=== PATIENT | male | born 1990 | race Caucasian/White ===

== ENCOUNTER 2019-02-20 12:54 | Emergency (ER) | payer BC ==
--- NOTE | 2019-02-20 14:44 | RAD REPORT ---
EXAM DESCRIPTION: RAD - Elbow Right 3 View - 02/20/2019 2:38 pm CLINICAL HISTORY: pain COMPARISON: No comparisons FINDINGS: Mild soft tissue swelling is seen about the elbow. No acute fracture, dislocation or radio paque foreign body evident.
--- NOTE | 2019-02-20 20:19 | EDPHYS ---
Physician Documentation [facility] Name: Isaac Mcknight Age: 28 yrs Sex: Male : 1990 Arrival Date: 02/20/2019 Time: 12:58 Bed 30 Private MD: ED Physician Johnson Valdez HPI: 02/20 15:07 This 28 yrs old presents to ER via Ambulatory with complaints of Elbow Injury. pm1 15:07 The patient or guardian complains of pain, swelling. The complaints affect the right pm1 elbow. Context: The problem was sustained outdoors, resulted from Fall on ground while pushing his car and landed on his right elbow. Onset: The symptoms/episode began/occurred 4 day(s) ago. Treatment prior to arrival includes: no previous treatment. Modifying factors: The symptoms are alleviated by remaining still, the symptoms are aggravated by movement. Associated signs and symptoms: Pertinent negatives: decreased range of motion, deformity, erythema, fever, numbness, tingling, weakness. Severity of symptoms: in the emergency department the symptoms are unchanged. The patient has not experienced similar symptoms in the past. Historical: - Allergies: 13:06 No Known Allergies; aj1 - Home Meds: 13:06 None [Active]; aj1 - PMHx: 13:06 None; aj1 - PSHx: 13:06 None; aj1 - Immunization history:: Flu vaccine is not up to date. - Social history:: Smoking status: Patient uses tobacco products, smokes one-half pack cigarettes per day. - Ebola Screening: : Patient denies travel to an Ebola-affected area in the 21 days before illness onset. ROS: 15:07 Constitutional: Negative for fever, chills, and weight loss, Neck: Negative for injury, pm1 pain, and swelling, Cardiovascular: Negative for chest pain, palpitations, and edema, Respiratory: Negative for shortness of breath, cough, wheezing, and pleuritic chest pain, Abdomen/GI: Negative for abdominal pain, nausea, vomiting, diarrhea, and constipation, Back: Negative for injury and pain. 15:07 Skin: Negative for injury, rash, and discoloration, Neuro: Negative for headache, weakness, numbness, tingling, and seizure. 15:07 MS/extremity: Positive for pain, swelling, of the right elbow, Negative for decreased range of motion, deformity. Exam: 15:07 Constitutional: This is a well developed, well nourished patient who is awake, alert, pm1 and in no acute distress. Head/Face: Normocephalic, atraumatic. Neck: Trachea midline, no thyromegaly or masses palpated, and no cervical lymphadenopathy. Supple, full range of motion without nuchal rigidity, or vertebral point tenderness. No Meningismus. Chest/axilla: Normal chest wall appearance and motion. Nontender with no deformity. No lesions are appreciated. Cardiovascular: Regular rate and rhythm with a normal S1 and S2. No gallops, murmurs, or rubs. Normal PMI, no JVD. No pulse deficits. Respiratory: Lungs have equal breath sounds bilaterally, clear to auscultation and percussion. No rales, rhonchi or wheezes noted. No increased work of breathing, no retractions or nasal flaring. Back: No spinal tenderness. No costovertebral tenderness. Full range of motion. Skin: Warm, dry with normal turgor. Normal color with no rashes, no lesions, and no evidence of cellulitis. 15:07 Musculoskeletal/extremity: Extremities: grossly normal except: noted in the right elbow: swelling, tenderness, There is no evidence of decreased ROM, deformity. Vital Signs: 13:06 BP 129 / 82; Pulse 73; Resp 18; Temp 98.4; Pulse Ox 100% on R/A; Weight 74.84 kg (R); aj1 Height 6 ft. 0 in. (182.88 cm) (R); Pain 3/10; 14:00 BP 128 / 78; Pulse 70; Resp 16; Pulse Ox 100% on R/A; tr5 13:06 Body Mass Index 22.38 (74.84 kg, 182.88 cm) aj1 MDM: 14:10 Patient medically screened. pm1 15:07 Data reviewed: vital signs. Data interpreted: Pulse oximetry: on room air is 100 %. pm1 Interpretation: normal. Counseling: I had a detailed discussion with the patient and/or guardian regarding: the historical points, exam findings, and any diagnostic results supporting the discharge/admit diagnosis, radiology results, the need for outpatient follow up, to return to the emergency department if symptoms worsen or persist or if there are any questions or concerns that arise at home. Administered Medications: No medications were administered Disposition: 02/21 07:28 Co-signature as Attending Physician, Johnson Valdez MD I agree with the assessment and kdr plan of care. Disposition: 02/20/19 15:08 Discharged to Home. Impression: Contusion of right elbow. - Condition is Stable. - Discharge Instructions: Elbow Contusion. - Prescriptions for Diclofenac Sodium 75 mg Oral Tablet Sustained Release - take 1 tablet by ORAL route 2 times per day; 30 tablet. - Medication Reconciliation Form, Thank You Letter, Antibiotic Education, Prescription Opioid Use form. - Follow up: Emergency Department; When: As needed; Reason: Worsening of condition. Follow up: Private Physician; When: 2 - 3 days; Reason: Recheck today's complaints, Continuance of care, Re-evaluation by your physician. - Problem is new. - Symptoms have improved. Signatures: Alyson Covarrubias, RN RN aj1 Johnson Valdez MD MD kdr Isaca Umaña NP TRACKWALKER pm1 Kishan Ng RN RN tr5 Corrections: (The following items were deleted from the chart) 02/20 15:30 15:08 02/20/2019 15:08 Discharged to Home. Impression: Contusion of right elbow. tr5 Condition is Stable. Forms are Medication Reconciliation Form, Thank You Letter, Antibiotic Education, Prescription Opioid Use. Follow up: Emergency Department; When: As needed; Reason: Worsening of condition. Follow up: Private Physician; When: 2 - 3 days; Reason: Recheck today's complaints, Continuance of care, Re-evaluation by your physician. Problem is new. Symptoms have improved. pm1
--- NOTE | 2019-02-20 20:21 | ER ---
Nurse's Notes [facility] Name: Isaac Mcknight Age: 28 yrs Sex: Male : 1990 Arrival Date: 02/20/2019 Time: 12:58 Bed 30 Private MD: Diagnosis: Contusion of right elbow Presentation: 02/20 13:05 Presenting complaint: Patient states: "Last Sunday I got my car stuck trying to find a aj1 fishing spot. I had to get myself out since then my elbow has been hurting pretty bad and its swelling and the pain won't go away". Transition of care: patient was not received from another setting of care. Onset of symptoms was January 2019. Risk Assessment: Do you want to hurt yourself or someone else? Patient reports no desire to harm self or others. Initial Sepsis Screen: Does the patient meet any 2 criteria? No. Patient's initial sepsis screen is negative. Does the patient have a suspected source of infection? No. Patient's initial sepsis screen is negative. Care prior to arrival: None. 13:05 Method Of Arrival: Ambulatory aj 13:05 Acuity: BRIDGER 4 aj1 Triage Assessment: 13:06 General: Appears in no apparent distress. uncomfortable, Behavior is calm, cooperative, aj1 appropriate for age. Pain: Complains of pain in right elbow Pain currently is 3 out of 10 on a pain scale. Neuro: Level of Consciousness is awake, alert, obeys commands. Cardiovascular: Patient's skin is warm and dry. Respiratory: Airway is patent Respiratory effort is even, unlabored, Respiratory pattern is regular, symmetrical. Musculoskeletal: Range of motion: limited in right elbow. 15:28 Injury Description: Fall. tr5 Historical: - Allergies: 13:06 No Known Allergies; aj1 - Home Meds: 13:06 None [Active]; aj1 - PMHx: 13:06 None; aj1 - PSHx: 13:06 None; aj1 - Immunization history:: Flu vaccine is not up to date. - Social history:: Smoking status: Patient uses tobacco products, smokes one-half pack cigarettes per day. - Ebola Screening: : Patient denies travel to an Ebola-affected area in the 21 days before illness onset. Screenin:01 Abuse screen: Denies threats or abuse. Nutritional screening: No deficits noted. tr5 Tuberculosis screening: No symptoms or risk factors identified. Fall Risk None identified. Assessment: 14:19 General: Appears in no apparent distress. comfortable, Behavior is calm, cooperative, tr5 appropriate for age. 14:21 Pain: Complains of pain in right elbow Pain does not radiate. Pain currently is 4 out tr5 of 10 on a pain scale. Quality of pain is described as aching, Pain began 2-3 days ago. Is intermittent. Neuro: Level of Consciousness is awake, alert, obeys commands, Oriented to person, place, time, Senior Program Planner are equal bilaterally Moves all extremities. Cardiovascular: Heart tones present Capillary refill < 3 seconds Pulses are all present. Respiratory: Airway is patent Respiratory effort is even, unlabored, Respiratory pattern is regular, symmetrical. GI: No signs and/or symptoms were reported involving the gastrointestinal system. : No signs and/or symptoms were reported regarding the genitourinary system. EENT: No signs and/or symptoms were reported regarding the EENT system. Derm: Skin is intact, Skin is dry, Skin is normal, Skin temperature is warm. Musculoskeletal: Capillary refill < 3 seconds, Range of motion: intact in all extremities. 15:03 Reassessment: Patient appears in no apparent distress at this time. Patient and/or tr5 family updated on plan of care and expected duration. Pain level reassessed. Patient is alert, oriented x 3, equal unlabored respirations, skin warm/dry/pink. Vital Signs: 13:06 BP 129 / 82; Pulse 73; Resp 18; Temp 98.4; Pulse Ox 100% on R/A; Weight 74.84 kg (R); aj1 Height 6 ft. 0 in. (182.88 cm) (R); Pain 3/10; 14:00 BP 128 / 78; Pulse 70; Resp 16; Pulse Ox 100% on R/A; tr5 13:06 Body Mass Index 22.38 (74.84 kg, 182.88 cm) aj ED Course: 12:58 Patient arrived in ED. mr 13:06 Triage completed. aj1 13:55 Isaac Umaña NP is PHCP. pm1 13:55 Johnson Valdez MD is Attending Physician. pm1 14:01 Kishan Ng RN is Primary Nurse. tr5 14:01 Bed in low position. Call light in reach. tr5 14:21 Awaiting for x-ray. tr5 14:30 Arm band placed on. tr5 15:03 Awaiting radiology results. tr5 15:28 No provider procedures requiring assistance completed. Patient did not have IV access tr5 during this emergency room visit. Administered Medications: No medications were administered Outcome: 15:08 Discharge ordered by MD. pm1 15:28 Discharged to home ambulatory. tr5 15:28 Condition: stable 15:28 Discharge instructions given to patient, family, Instructed on discharge instructions, follow up and referral plans. medication usage, Demonstrated understanding of instructions, follow-up care, medications, Prescriptions given X 1. 15:30 Patient left the ED. tr5 Signatures: Alyson Covarrubias RN RN aj1 Alexandra Coe Patrick, CUSTODIAL OPERATIONS MANAGER CUSTODIAL OPERATIONS MANAGER pm1 Kishan Ng RN RN tr5 Corrections: (The following items were deleted from the chart) 14:23 14:19 General: Appears in no apparent distress. comfortable, Behavior is calm, tr5 cooperative, appropriate for age, tr5
== END 2019-02-20 15:30 | disposition home or self-care (01) ==
LOC: ER 12:54
DX: S50.01XA Contusion of right elbow, initial encounter (principal); W18.39XA Other fall on same level, initial encounter; Y93.89 Activity, other specified; Y92.9 Unspecified place or not applicable
CPT/HCPCS: 99282

== ENCOUNTER 2022-04-13 00:16 | Emergency (ER) | payer BC, SELFPAY ==
--- NOTE | 2022-04-13 01:29 | EDPHYS ---
Physician Documentation [facility] Name: Isaac Mcknight Age: 32 yrs Sex: Male : 1990 Arrival Date: 04/13/2022 Time: 00:25 Bed Treatment Private MD: ED Physician Inez Bonner HPI: 04/13 01:19 This 32 yrs old Male presents to ER via Ambulatory with complaints of Laceration, sd2 Finger. 01:19 32-year-old male presents with chief complaint of laceration to his left that occurred sd2 when he cut himself while using woodworking tools. Patient used a paper towel to apply pressure and was able to control the bleeding. He reports his tetanus is up-to-date. He has no significant pain and is able to move the thumb normally.. Historical: - Allergies: 00:47 No Known Allergies; kl - Home Meds: 00:47 None [Active]; kl - PMHx: 00:47 broken neck; kl - Immunization history:: Last tetanus immunization: unknown. - Social history:: Smoking status: Reported history of juuling and/or vaping. ROS: 01:19 MS/Extremity: Positive for injury and negative for deformity, Skin: Negative for rash, sd2 and discoloration, Positive for laceration Neuro: Negative for headache, numbness and tingling. Exam: 01:19 Constitutional: This is a well developed, well nourished patient who is awake, alert, sd2 and in no acute distress. Head/Face: Normocephalic, atraumatic. Skin: Warm, dry with normal turgor. Normal color with no rashes, no lesions, and no evidence of cellulitis. Approximately 3.5 cm laceration noted to lateral aspect of left thumb with controlled bleeding. FROM of joint intact with good capillary refill. Vital Signs: 00:45 BP 124 / 87; Pulse 80; Resp 18; Temp 98.2; Pulse Ox 99% on R/A; Weight 90.72 kg; Height kl 6 ft. (182.88 cm); Pain 0/10; 01:42 BP 124 / 66; Pulse 79; Resp 18; Pulse Ox 99% ; kl 00:45 Body Mass Index 27.12 (90.72 kg, 182.88 cm) kl Laceration: 01:19 Wound Repair of 3.5cm ( 1.4in ) subcutaneous laceration to left hand. Linear shaped.. sd2 Minimal contamination.. Hemostasis noted.. Distal neuro/vascular/tendon intact. Anesthesia: No anesthetic given at patient request with None. Wound prep: Simple cleansing. Skin closed with 2 3-0 Prolene using interrupted sutures. Dressed with 4x4's. Patient tolerated well. MDM: 00:59 Patient medically screened. sd2 01:27 Differential diagnosis: superficial laceration, tendon injury, vascular injury, among sd2 others. Data reviewed: vital signs, nurses notes. Counseling: I had a detailed discussion with the patient and/or guardian regarding: the historical points, exam findings, and any diagnostic results supporting the discharge/admit diagnosis, the need for outpatient follow up, to return to the emergency department if symptoms worsen or persist or if there are any questions or concerns that arise at home. ED course: No signs of contamination, FB or fracture at this time. Pt declined numbing for sutures and they were placed without complication or difficulty. Tetanus UTD. Pt comfortable with plan for discharge with continued wound care and outpatient follow up or return to ED for suture removal. Verbalizes understanding of strict return precautions.. Administered Medications: No medications were administered Disposition Summary: 04/13/22 01:29 Discharge Ordered Location: Home sd2 Problem: new sd2 Symptoms: have improved sd2 Condition: Stable sd2 Diagnosis - Laceration without foreign body of left thumb without damage to nail sd2 Followup: sd2 - With: Emergency Department - When: 1 week - Reason: Staple/Suture removal Discharge Instructions: - Discharge Summary Sheet sd2 - Laceration Care, Adult sd2 Forms: - Medication Reconciliation Form sd2 - Thank You Letter sd2 - Antibiotic Education sd2 - Prescription Opioid Use sd2 Signatures: Chio Natarajan RN RN kl Dunlop, Stephanie, MD MD sd2 Corrections: (The following items were deleted from the chart) 00:47 00:47 PMHx: None; 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
--- NOTE | 2022-04-13 01:29 | ER ---
Nurse's Notes [facility] Name: Isaac Mcknight Age: 32 yrs Sex: Male : 1990 Arrival Date: 04/13/2022 Time: 00:25 Bed Treatment Private MD: Diagnosis: Laceration without foreign body of left thumb without damage to nail Presentation: 04/13 00:45 Chief complaint: Patient states: lac to left thumb while using woodworking tools. kl Coronavirus screen: Vaccine status: Patient reports being unvaccinated. Ebola Screen: Patient negative for fever greater than or equal to 101.5 degrees Fahrenheit, and additional compatible Ebola Virus Disease symptoms. Complicating Factors: There are no complicating factors for this patient. Initial Sepsis Screen: Does the patient meet any 2 criteria? No. Patient's initial sepsis screen is negative. Does the patient have a suspected source of infection? No. Patient's initial sepsis screen is negative. Risk Assessment: Do you want to hurt yourself or someone else? Patient reports no desire to harm self or others. 00:45 Method Of Arrival: Ambulatory 00:45 Acuity: BRIDGER 4 kl Triage Assessment: 00:47 General: Appears in no apparent distress. Behavior is calm, cooperative. Injury kl Description: Laceration sustained to palmar aspect of distal phalanx of left thumb is bleeding a small amount. Historical: - Allergies: 00:47 No Known Allergies; kl - Home Meds: 00:47 None [Active]; kl - PMHx: 00:47 broken neck; kl - Immunization history:: Last tetanus immunization: unknown. - Social history:: Smoking status: Reported history of juuling and/or vaping. Screenin:42 Abuse screen: Denies threats or abuse. Nutritional screening: No deficits noted. Tuberculosis screening: No symptoms or risk factors identified. Fall Risk None identified. Assessment: 01:42 General: Appears in no apparent distress. comfortable. Pain: Denies pain. kl Musculoskeletal: No deficits noted. 01:44 Injury Description: Laceration is. kl Vital Signs: 00:45 BP 124 / 87; Pulse 80; Resp 18; Temp 98.2; Pulse Ox 99% on R/A; Weight 90.72 kg; Height kl 6 ft. (182.88 cm); Pain 0/10; 01:42 BP 124 / 66; Pulse 79; Resp 18; Pulse Ox 99% ; kl 00:45 Body Mass Index 27.12 (90.72 kg, 182.88 cm) ED Course: 00:25 Patient arrived in ED. bp1 00:47 Triage completed. kl 00:59 Inez Bonner MD is Attending Physician. sd2 01:43 Assist provider with laceration repair on palmar aspect of distal phalanx of left thumb kl that was between 2.6 to 7.5 cm Set up tray. Performed by Inez Bonner MD Patient tolerated well. Patient did not have IV access during this emergency room visit. 01:43 Patient has correct armband on for positive identification. kl Administered Medications: No medications were administered Outcome: 01:29 Discharge ordered by . sd2 01:44 Discharged to home ambulatory. kl 01:44 Condition: stable 01:44 Discharge instructions given to patient, Instructed on discharge instructions, follow up and referral plans. Demonstrated understanding of instructions, follow-up care, wound care. 01:44 Patient left the ED. kl Signatures: Chio Natarajan RN RN Jodi Nunez bp1 Inez Bonner MD MD sd2 Corrections: (The following items were deleted from the chart) 00:47 00:47 PMHx: None; kl 01:43 01:43 No provider procedures requiring assistance completed. [facility] 01:43 01:43 Patient did not have IV access during this emergency room visit. [facility]
[2022-04-13 01:48] VITALS: TEMP 98.2; O2SAT 99
[2022-04-13 01:49] VITALS: BP 124/66
== END 2022-04-13 01:44 | disposition home or self-care (01) ==
LOC: ER 00:16
PROC: 0JQK0ZZ Repair Left Hand Subcutaneous Tissue and Fascia, Open Approach (ICD-10-PCS; principal; 2022-04-13)
DX: S61.012A Laceration without foreign body of left thumb without damage to nail, initial encounter (principal)
CPT/HCPCS: 99283